=== PATIENT | male | born 2000 | race African-American/Black ===

== ENCOUNTER 2019-03-18 02:37 | Emergency (ER) | payer MEDICAID ==
[2019-03-18] MEDS ORDERED: NORMAL SALINE 1000 ML 1,000 ML IV ONE (03:58)
[2019-03-18] MEDS ORDERED: ONDANSETRON HCL INJ/PF 4 MG/2 ML SDV IV ONE (03:58)
[2019-03-18 04:22] LABS: ABSOLUTE BASOPHILS # (AUTO) 0.1 10^3/uL (0.0-0.2); ABSOLUTE MONOCYTES (AUTO) 0.4 10^3/uL (0.1-1.4); ABSOLUTE NEUT (AUTO) 6.5 10^3/uL (1.7-8.2); BASOPHILS % (AUTO) 0.6 % (0-2); EOSINOPHILS % (AUTO) 0.4 % (0-6); HEMATOCRIT 44.2 % (37.9-51.0); HEMOGLOBIN 14.6 g/dL (13.5-17.0); LYMPHOCYTES % (AUTO) 22.1 % (13-45); MEAN CORPUSCULAR HEMOGLOBIN 27.7 pg (27.0-33.4); MEAN CORPUSCULAR VOLUME 84 fl (80-97); MONOCYTES % (AUTO) 4.4 % (3-13); PLATELET COUNT 185 10^3/uL (150-450); RED BLOOD COUNT 5.26 10^6/uL (4.35-5.55); RED CELL DISTRIBUTION WIDTH 12.8 % (11.5-14.0); SEGMENTED NEUTROPHILS % (AUTO) 72.5 % (42-78); TOTAL CELLS COUNTED % (AUTO) 100 %; WHITE BLOOD COUNT 8.9 10^3/uL (4.0-10.5)
[2019-03-18 04:45] LABS: ALBUMIN 4.9 g/dL (3.7-5.6); ALKALINE PHOSPHATASE 73 U/L (65-260); ANION GAP 9 (5-19); ASPARTATE AMINO TRANSFERASE 25 U/L (10-45); BILIRUBIN,DIRECT 0.3 mg/dL (0.0-0.4); BILIRUBIN,TOTAL 0.8 mg/dL (0.2-1.3); BLOOD UREA NITROGEN 22 mg/dL (7-20); CALCIUM 9.9 mg/dL (8.4-10.2); CARBON DIOXIDE 29 mmol/L (22-30); CHLORIDE 102 mmol/L (98-107); GLUCOSE 164 mg/dL (75-110); POTASSIUM 4.1 mmol/L (3.6-5.0); TOTAL PROTEIN 8.1 g/dL (6.3-8.2)
[2019-03-18 05:52] LABS: AMORPHOUS SEDIMENT,URINE TRACE /HPF; APPEARANCE,URINE CLOUDY; BILIRUBIN,URINE NEGATIVE (NEGATIVE); COLOR,URINE YELLOW; GLUCOSE, URINE NEGATIVE (NEGATIVE); KETONES,URINE TRACE mg/dL (NEGATIVE); LEUKOCYTE ESTERASE,URINE NEGATIVE (NEGATIVE); NITRITE,URINE NEGATIVE (NEGATIVE); PROTEIN,URINE 30 mg/dL (NEGATIVE); URINE SPECIFIC GRAVITY 1.034
[2019-03-18 06:31] VITALS: BP 144/89
[2019-03-18] MEDS ORDERED: ONDANSETRON ODT 4 MG TAB (6 TAB/ER DISP) PO PRN (06:51)
--- NOTE | 2019-03-18 06:51 | ER Document Report ---
ED General - General Chief Complaint: Nausea/Vomiting/Diarrhea Stated Complaint: ABDOMINAL PAIN,VOMITING Time Seen by Provider: 03/18/19 04:00 Primary Care Provider: HENRY TORRES MD [Primary Care Provider] - Follow up as needed Notes: Patient is otherwise healthy 18-year-old male presents to the emergency department for nausea, vomiting, diarrhea proximally starting around 2000 hrs. this evening. States he ate at a different [place] restaurant that he typically eats out. States he ate a different meal that he typically eats and shortly after that developed nausea, vomiting, diarrhea. Patient states he is unsure of how many times he has had vomiting or diarrhea but is denying blood in either. Patient states he does have generalized abdominal pain. Patient's denying any medications, denies any medical problems, denies any allergies. TRAVEL OUTSIDE OF THE [place] IN LAST 30 DAYS: No - Related Data Allergies/Adverse Reactions: No Known Allergies Allergy (Unverified 06/23/13 19:10) Past Medical History - General Information source: Patient - Social History Smoking Status: Unknown if Ever Smoked Family History: Reviewed & Not Pertinent Patient has suicidal ideation: No Patient has homicidal ideation: No Pulmonary Medical History: Denies: Hx Asthma Musculoskeletal Medical History: Denies Hx Musculoskeletal Trauma Traumatic Medical History: Denies: Hx Fractures - Immunizations Immunizations up to date: Yes Hx Diphtheria, Pertussis, Tetanus Vaccination: Yes Review of Systems - Review of Systems Constitutional: denies: Fever EENT: No symptoms reported Cardiovascular: No symptoms reported Respiratory: No symptoms reported Gastrointestinal: See HPI Genitourinary: No symptoms reported Male Genitourinary: No symptoms reported Musculoskeletal: No symptoms reported Skin: No symptoms reported Hematologic/Lymphatic: No symptoms reported Neurological/Psychological: No symptoms reported Physical Exam - Vital signs Vitals: Temp Pulse Resp BP Pulse Ox 97.3 F 62 17 127/76 H 100 03/18/19 02:45 03/18/19 02:45 03/18/19 02:45 03/18/19 02:45 03/18/19 02:45 - Notes Notes: GENERAL: Alert, interacts well. No acute distress. HEAD: Normocephalic, atraumatic. EYES: Pupils equal, round, and reactive to light. Extraocular movements intact. ENT: Oral mucosa moist, tongue midline. NECK: Full range of motion. Supple. Trachea midline. LUNGS: Clear to auscultation bilaterally, no wheezes, rales, or rhonchi. No respiratory distress. HEART: Regular rate and rhythm. No murmur ABDOMEN: Soft, generalized periumbilical abdominal pain noted. Non-distended. Bowel sounds present in all 4 quadrants. No McBurney's point tenderness, no Santamaria sign noted. EXTREMITIES: Moves all 4 extremities spontaneously. No edema, normal radial and dorsalis pedis pulses bilaterally. No cyanosis. BACK: no cervical, thoracic, lumbar midline tenderness. No saddle anesthesia, normal distal neurovascular exam. NEUROLOGICAL: Alert and oriented x3. Normal speech. cranial nerves II through XII grossly intact PSYCH: Normal affect, normal mood. SKIN: Warm, dry, normal turgor. No rashes or lesions noted. Course - Re-evaluation Re-evalutation: 03/18/19 06:49 Laboratory 03/18/19 03/18/19 03/18/19 04:05 04:05 05:20 WBC 8.9 RBC 5.26 Hgb 14.6 Hct 44.2 MCV 84 MCH 27.7 MCHC 33.0 RDW 12.8 Plt Count 185 Lymph % (Auto) 22.1 [place] % (Auto) 4.4 Eos % (Auto) 0.4 Baso % (Auto) 0.6 Absolute Neuts (auto) 6.5 Absolute Lymphs (auto) 2.0 Absolute Monos (auto) 0.4 Absolute Eos (auto) 0.0 Absolute Basos (auto) 0.1 Seg Neutrophils % 72.5 Sodium 140.0 Potassium 4.1 Chloride 102 Carbon Dioxide 29 Anion Gap 9 BUN 22 H Creatinine 0.95 Est GFR ( Amer) > 60 Est GFR (MDRD) Non-Af > 60 Glucose 164 H Calcium 9.9 Total Bilirubin 0.8 Direct Bilirubin 0.3 Neonat Total Bilirubin Not Reportable Neonat Direct Bilirubin Not Reportable Neonat Indirect Bili Not Reportable AST 25 ALT 18 Alkaline Phosphatase 73 Total Protein 8.1 Albumin 4.9 Lipase 30.3 Urine Color YELLOW Urine Appearance CLOUDY Urine pH 6.0 Ur Specific [place] 1.034 Urine Protein 30 H Urine Glucose (UA) NEGATIVE Urine Ketones TRACE H Urine Blood NEGATIVE Urine Nitrite NEGATIVE Urine Bilirubin NEGATIVE Urine Urobilinogen 2.0 H Ur Leukocyte Esterase NEGATIVE Urine WBC (Auto) 2 Urine RBC (Auto) 1 Amorphous Sediment Auto TRACE Urine Mucus (Auto) MOD Urine Ascorbic Acid 40 H After treatments in the emergency department patient is sleeping upon my arrival to room for reexamination. Patient easily arousable to verbal stimuli. Patient states he overall feels a lot better. He has had no further episodes of vomiting or diarrhea. Patient denies any abdominal pain. Repeat abdominal exam reveals no tenderness in all 4 quadrants or periumbilical. Discussed use of Zofran and staying well-hydrated. At this time will discharge with return precautions and follow-up recommendations. Verbal discharge instructions given a the bedside and opp ortunity for questions given. Medication warnings reviewed. Patient is in agreement with this plan and has verbalized understanding of return precautions and the need for primary care follow-up in the next 24-72 hours. This medical record was dictated with voice recognizing software. There may be grammatical, syntax errors that are unintended. - Vital Signs Vital signs: Temp Pulse Resp BP Pulse Ox 98.2 F 61 12 144/89 H 98 03/18/19 06:29 03/18/19 06:29 03/18/19 06:29 03/18/19 06:29 03/18/19 06:29 - Laboratory Result Diagrams: 03/18/19 04:05 03/18/19 04:05 Laboratory results interpreted by me: 03/18/19 03/18/19 04:05 05:20 BUN 22 H Glucose 164 H Urine Protein 30 H Urine Ketones TRACE H Urine Urobilinogen 2.0 H Urine Ascorbic Acid 40 H Discharge - Discharge Clinical Impression: Nausea vomiting and diarrhea Condition: Stable Disposition: HOME, SELF-CARE Instructions: Antinausea Medication ([facility]), Diarrhea, Nonspecific ([facility]), Intravenous (IV) Fluids ([facility]), Vomiting ([facility]) Additional Instructions: As we discussed you have been seen and treated in the emergency department for nausea, vomiting, diarrhea. Please use nausea medication only as needed. Please also try to stay well-hydrated with water, Pedialyte, Gatorade. Please follow-up with your primary care provider in the next 24 to 48 hours. Please return to the emergency room for any further concerns. Forms: Return to Work Referrals: HENRY TORRES MD [Primary Care Provider] - Follow up as needed
== END 2019-03-18 07:02 | disposition home or self-care (01) ==
LOC: ER 02:37
DX: R11.2 Nausea with vomiting, unspecified (principal); R19.7 Diarrhea, unspecified; R10.9 Unspecified abdominal pain
CPT/HCPCS: 99284; 96361; 96374; 36415; 83690; 85025; 80053; 81001; J2405; J7030

== ENCOUNTER 2019-03-19 16:59 | Emergency (ER) | payer MEDICAID ==
[2019-03-19] MEDS ORDERED: FAMOTIDINE INJ/PF 20 MG/2 ML SDV IV ONE (17:53)
[2019-03-19] MEDS ORDERED: NORMAL SALINE 1000 ML 1,000 ML IV ONE (17:53)
[2019-03-19] MEDS ORDERED: METOCLOPRAMIDE HCL INJ/PF 10 MG/2 ML SDV IV ONE (17:53)
--- NOTE | 2019-03-19 17:56 | ER Document Report ---
ED Medical Screen (RME) - General Chief Complaint: Abdominal Pain Stated Complaint: ABDONMINAL PAIN Time Seen by Provider: 03/19/19 17:50 Primary Care Provider: HENRY TORRES MD [Primary Care Provider] - Follow up as needed Mode of Arrival: Ambulatory Information source: Patient Notes: Patient is an otherwise healthy 18-year-old male presenting to the emergency dep artment chief complaint of 3-day history of severe abdominal pain. Patient reports pain in the epigastric area, states he was seen here several days ago, diagnosed with food poisoning and placed on Zofran. Patient reports his symptoms have been getting worse since he left in the Zofran is not helping with his nausea. Patient denies any fevers. Patient does report he feels like he has to have a bowel movement but is unable to. Exam: Patient alert, oriented, answering all questions appropriately. Patient rocking back in chair and appears to be in mild distress. Tenderness to upper abdomen with palpation. I have greeted and performed a rapid initial assessment of this patient. A comprehensive ED assessment and evaluation of the patient, analysis of test results and completion of the medical decision making process will be conducted by additional ED providers. I have specifically instructed the patient or family members with the patient to immediately return to any nursing staff sh ould anything change in the patient's condition or with their chief complaint. This medical record was dictated with voice recognizing software. There may be grammatical, syntax errors that are unintended. TRAVEL OUTSIDE OF THE [place] IN LAST 30 DAYS: No - Related Data Allergies/Adverse Reactions: No Known Allergies Allergy (Verified 03/19/19 17:06) Past Medical History Pulmonary Medical History: Denies: Hx Asthma Musculoskeltal Medical History: Denies Hx Musculoskeletal Trauma Traumatic Medical History: Denies: Hx Fractures - Immunizations Immunizations up to date: Yes Hx Diphtheria, Pertussis, Tetanus Vaccination: Yes Physical Exam - Vital signs Vitals: Temp Pulse Resp BP Pulse Ox 98.0 F 73 18 133/69 H 99 03/19/19 17:08 03/19/19 17:08 03/19/19 17:08 03/19/19 17:08 03/19/19 17:08 Course - Vital Signs Vital signs: Temp Pulse Resp BP Pulse Ox 98.0 F 73 18 133/69 H 99 03/19/19 17:08 03/19/19 17:08 03/19/19 17:08 03/19/19 17:08 03/19/19 17:08 Doctor's Discharge - Discharge Referrals: HENRY TORRES MD [Primary Care Provider] - Follow up as needed
[2019-03-19 18:27] LABS: ABSOLUTE BASOPHILS # (AUTO) 0.1 10^3/uL (0.0-0.2); ABSOLUTE EOSINOPHILS # (AUTO) 0.2 10^3/uL (0.0-0.6); ABSOLUTE LYMPHOCYTES (AUTO) 4.3 10^3/uL (0.5-4.7); ABSOLUTE MONOCYTES (AUTO) 0.7 10^3/uL (0.1-1.4); ABSOLUTE NEUT (AUTO) 6.5 10^3/uL (1.7-8.2); EOSINOPHILS % (AUTO) 1.4 % (0-6); HEMATOCRIT 44.9 % (37.9-51.0); HEMOGLOBIN 14.8 g/dL (13.5-17.0); LYMPHOCYTES % (AUTO) 36.7 % (13-45); MEAN CORPUSCULAR HEMOGLOBIN 27.6 pg (27.0-33.4); MEAN CORPUSCULAR HGB CONC 32.9 g/dL (32.0-36.0); MEAN CORPUSCULAR VOLUME 84 fl (80-97); PLATELET COUNT 200 10^3/uL (150-450); RED BLOOD COUNT 5.36 10^6/uL (4.35-5.55); RED CELL DISTRIBUTION WIDTH 12.7 % (11.5-14.0); SEGMENTED NEUTROPHILS % (AUTO) 54.9 % (42-78); TOTAL CELLS COUNTED % (AUTO) 100 %; WHITE BLOOD COUNT 11.8 10^3/uL (4.0-10.5)
[2019-03-19 18:47] LABS: ALBUMIN 5.2 g/dL (3.7-5.6); ALKALINE PHOSPHATASE 63 U/L (65-260); ANION GAP 13 (5-19); ASPARTATE AMINO TRANSFERASE 25 U/L (10-45); BILIRUBIN,DIRECT 0.3 mg/dL (0.0-0.4); BILIRUBIN,TOTAL 0.7 mg/dL (0.2-1.3); BLOOD UREA NITROGEN 13 mg/dL (7-20); CALCIUM 10.4 mg/dL (8.4-10.2); CARBON DIOXIDE 29 mmol/L (22-30); CHLORIDE 98 mmol/L (98-107); GLUCOSE 116 mg/dL (75-110); TOTAL PROTEIN 8.2 g/dL (6.3-8.2)
--- NOTE | 2019-03-19 19:25 | ER Document Report ---
ED General - General Chief Complaint: Abdominal Pain Stated Complaint: ABDONMINAL PAIN Time Seen by Provider: 03/19/19 17:50 Primary Care Provider: HENRY TORRES MD [ACTIVE STAFF] - Follow up as needed Mode of Arrival: Ambulatory TRAVEL OUTSIDE OF THE [place] IN LAST 30 DAYS: No - HPI Notes: Patient is a 18-year-old male with no significant past medical history presents complaining of right lower abdominal pain, nausea, vomiting for the past 2 to 3 days. Patient states that the pain can get severe. Patient states that the pain does not radiate. He has had decreased p.o. intake due to his nausea and vomiting. Last bowel movement was here in the ED and was considered soft for him. He is still urinating normally. Denies drug allergies. No surgical history to his abdomen. Denies any headache, fever, URI, sore throat, chest pain, palpitations, syncope, cough, shortness of breath, wheeze, dyspnea, diarrhea, urinary retention, dysuria, hematuria, or rash. - Related Data Allergies/Adverse Reactions: No Known Allergies Allergy (Verified 03/19/19 17:06) Past Medical History - General Information source: Patient - Social History Smoking Status: Never Smoker Family History: Reviewed & Not Pertinent Patient has suicidal ideation: No Patient has homicidal ideation: No Pulmonary Medical History: Denies: Hx Asthma Musculoskeletal Medical History: Denies Hx Musculoskeletal Trauma Traumatic Medical History: Denies: Hx Fractures - Immunizations Immunizations up to date: Yes Hx Diphtheria, Pertussis, Tetanus Vaccination: Yes Review of Systems - Review of Systems -: Yes All other systems reviewed and negative Physical Exam - Vital signs Vitals: Temp Pulse Resp BP Pulse Ox 98.0 F 73 18 133/69 H 99 03/19/19 17:08 03/19/19 17:08 03/19/19 17:08 03/19/19 17:08 03/19/19 17:08 - Notes Notes: PHYSICAL EXAMINATION: GENERAL: Well-appearing, well-nourished and in no acute distress. HEAD: Atraumatic, normocephalic. EYES: Pupils equal round and reactive to light, extraocular movements intact, sclera anicteric, conjunctiva are normal. ENT: Nares patent and without discharge. oropharynx clear without exudates. No tonsilar hypertrophy or erythema. Moist mucous membranes. NECK: Normal range of motion, supple without lymphadenopathy LUNGS: Breath sounds clear to auscultation bilaterally and equal. No wheezes rales or rhonchi. HEART: Regular rate and rhythm without murmurs, rubs, gallops. ABDOMEN: Soft, nondistended abdomen. No guarding, no rebound. Normal bowel sounds present. No CVA tenderness bilaterally. + tenderness RLQ to palp. Santamaria neg. Musculoskeletal: FROM to passive/active. Strength 5+/5. Extremities: No cyanosis, clubbing, or edema b/l. Peripheral pulses 2+. Capillary refill less than 3 seconds. NEUROLOGICAL: Normal speech, normal gait. PSYCH: Normal mood, normal affect. SKIN: Warm, Dry, normal turgor, no rashes or lesions noted. Course - Re-evaluation Re-evalutation: 03/19/19 20:46 Patient is an afebrile, well-hydrated, 18-year-old male who presents with right lower abdominal pain, unspecified. Vitals are acceptable without significant tachycardia, tachypnea, or hypoxia. PE is otherwise unremarkable. Patient is nontoxic-appearing is tolerating p.o. without difficulty. Labs are unremarkable. CT scan and KUB unremarkable. No further work-up warranted at this time. Low suspicion/risk for acute appendicitis, bowel obstruction, acute cholecystitis, perforated diverticulitis, incarcerated hernia, pancreatitis, perforated ulcer, peritonitis, sepsis, testicular torsion, or other systemic emergent condition at this time. Patient is aware that his condition can change from initial presentation and he needs to monitor symptoms closely and seek medical attention if any acute changes. Conservative measures otherwise for symptoms. Recheck with PCM in 2-3 days. Consider consult with a poultry hatchery man. Return to the ED with any worsening/concerning symptoms otherwise as reviewed in discharge. Patient is in agreement. - Vital Signs Vital signs: Temp Pulse Resp BP Pulse Ox 98.0 F 73 18 133/69 H 99 03/19/19 17:08 03/19/19 17:08 03/19/19 17:08 03/19/19 17:08 03/19/19 17:08 - Laboratory Result Diagrams: 03/19/19 18:10 03/19/19 18:10 Laboratory results interpreted by me: 03/19/19 03/19/19 18:10 18:10 WBC 11.8 H Glucose 116 H Calcium 10.4 H Alkaline Phosphatase 63 L Discharge - Discharge Clinical Impression: Lower abdominal pain, unspecified Nausea & vomiting Qualifiers: Vomiting type: unspecified Vomiting Intractability: non-intractable Qualified Code(s): R11.2 - Nausea with vomiting, unspecified Condition: Stable Disposition: HOME, SELF-CARE Instructions: Abdominal Pain ([facility]), Observation for Appendicitis ([facility]) Additional Instructions: Maintain adequate fluid and food intake [place] diet ([employer] Bananas, rice, apples, toast, etc tylenol if needed Monitor for any worsening symptoms Make sure you are staying hydrated enough to urinate and have normal BM's Recheck with your PCM in 2-3 days Consider consult with Gastroenterology for ongoing/worsening symptoms Return to the ED with any worsening symptoms and/or development of fever, headache, chest pain, palpitations, syncope, shortness of breath, trouble breathing, abdominal pain, n/v/d, blood in stool/urine, weakness, or other wo rsening symptoms that are concerning to you. Prescriptions: Promethazine HCl [Phenergan 25 mg Supp.rect] 1 supp OR TID PRN #10 supp.rect PRN Reason: Ondansetron [Zofran Odt 4 mg Tablet] 1 - 2 tab PO Q4H PRN #15 tab.rapdis PRN Reason: For Nausea/Vomiting Forms: Elevated Blood Pressure, Return to Work Referrals: HENRY TORRES MD [ACTIVE STAFF] - Follow up as needed VANESSA FENTON MD [ACTIVE STAFF] - Follow up as needed
--- NOTE | 2019-03-19 19:40 | RADIOLOGY REPORT (SQ) ---
EXAM DESCRIPTION: KUB/ABDOMEN (SINGLE VIEW) COMPLETED DATE/TIME: 03/19/2019 7:17 pm REASON FOR STUDY: abd pain, vomiting COMPARISON: None. NUMBER OF VIEWS: One view. TECHNIQUE: Supine radiographic image of the abdomen acquired. LIMITATIONS: None. FINDINGS: BOWEL GAS PATTERN: Normal bowel gas pattern. No dilated loops. CALCIFICATIONS: No suspicious calcifications. SOFT TISSUES: No gross mass or suggestion of organomegaly. HARDWARE: None in the abdomen. BONES: No acute fracture. No worrisome bone lesions. OTHER: No other significant finding. IMPRESSION: NO RADIOGRAPHIC EVIDENCE FOR ACUTE ABDOMINAL DISEASE. TECHNICAL DOCUMENTATION: JOB ID: [id number] [place]-72 2010 [employer]- All Rights Reserved Reading location - IP/workstation name: [email or web address]
--- NOTE | 2019-03-19 20:37 | RADIOLOGY REPORT (SQ) ---
EXAM DESCRIPTION: CT ABDOMEN PELVIS WITH IV CONTRAST COMPLETED DATE/TME: 03/19/2019 19:23 CLINICAL HISTORY: 18 years, Male, RLQ abd pain COMPARISON: None. TECHNIQUE: Contrast enhanced CT of the abdomen/pelvis was performed. Coronal and sagittal reformations were created. Images stored on PACS. All CT scanners at this facility use dose modulation, iterative reconstruction, and/or weight based dosing when appropriate to reduce radiation dose to as low as reasonably achievable (ALARA). [facility]: Dose Right [facility]: CareDose [facility]: Dose Right [facility]: Teradose 4D [facility]: [employer] LIMITATIONS: None. FINDINGS: Limited evaluation of the lower chest reveals clear lung bases. The liver, spleen, pancreas, gallbladder, and both adrenal glands appear normal. Both kidneys enhance symmetrically. No hydronephrosis or hydroureter. Urinary bladder is well distended and shows no suspicious finding. Small and large bowel appear normal in caliber. Areas of focal wall thickening. No evidence of bowel obstruction. Appendix is normal. Vascular structures appear normal. No lymphadenopathy or drainable fluid collections. Bone windows show no destructive osseous lesions. IMPRESSION: No acute abnormality within the abdomen or pelvis. TECHNICAL DOCUMENTATION: Quality ID # [id number]: Final reports with documentation of one or more dose reduction techniques (e.g., Automated exposure control, adjustment of the mA and/or kV according to patient size, use of iterative reconstruction technique) copyright 2011 [employer]- All Rights Reserved
[2019-03-19] MEDS ORDERED: KETOROLAC TROMETHAMINE INJ/PF 30 MG/1 ML SDV IV ONE (21:01)
[2019-03-19 21:18] VITALS: BP 136/86
== END 2019-03-19 21:16 | disposition home or self-care (01) ==
LOC: ER 16:59
DX: R10.31 Right lower quadrant pain (principal); R11.2 Nausea with vomiting, unspecified
CPT/HCPCS: 99284; 96361; 96374; 96375; 36415; 83690; 85025; 80053; 74018; 74177; J1885; J2765; J7030; S0028

== ENCOUNTER 2019-03-21 10:33 | Emergency (ER) | payer MEDICAID ==
[2019-03-21] MEDS ORDERED: METOCLOPRAMIDE HCL ORAL SOLN 10 MG/10 ML UDCUP PO ONE (11:11)
[2019-03-21] MEDS ORDERED: MAG HYDROX/AL HYDROX/SIMETH SUSP 30 ML UDCUP PO ONE (11:11)
[2019-03-21] MEDS ORDERED: LIDOCAINE 2% VISCOUS SOLN 20 ML UDCUP PO ONE (11:11)
--- NOTE | 2019-03-21 11:14 | ER Document Report ---
ED Medical Screen (RME) - General TRAVEL OUTSIDE OF THE [place] IN LAST 30 DAYS: No <SHERIN TENA - Last Filed: 03/21/19 11:12> <KITA ARIAS - Last Filed: 03/21/19 14:00> - General Chief Complaint: Abdominal Pain Stated Complaint: ABDOMINAL PAIN Time Seen by Provider: 03/21/19 11:05 Notes: Patient is a 18-year-old male presents to the emergency department with a chief complaint of abdominal pain. Patient states he was seen here a few days ago for the same and had a CAT scan which was unremarkable. Patient states yesterday he felt fine but then woke up this morning with a constant cramping to his abdomen. Patient states he is unable to pinpoint a specific location in his abdomen as he hurts all over. Patient reports nausea and vomiting twice this morning. Patient reports an episode of liquid stool. Patient denies blood in the vomitus or stool. Patient does report a history of acid reflux in which she was prescribed medication when he was younger but has not been on anything recently. Patient reports his abdominal pain is been present for 4 to 5 days. Patient states he has had a decreased appetite. (SHERIN TENA) - Related Data Pertinent History: Patient resents emergency department for evaluation of abdominal pain, nausea, vomiting, diarrhea. Initially stated he had not had diarrhea, but he states all of his stools have been liquid. He has had 2 episodes of nonbloody, nonbilious emesis. He has upper abdominal pain medic and not describe beyond saying "it hurts." Nothing seems to make it better or worse. He is still urinating. No tara fevers to his knowledge. (KITA ARIAS) Allergies/Adverse Reactions: No Known Allergies Allergy (Verified 03/21/19 10:34) Past Medical History - Social History Chew tobacco use (# tins/day): No Frequency of alcohol use: None Drug Abuse: None Pulmonary Medical History: Denies: Hx Asthma Musculoskeltal Medical History: Denies Hx Musculoskeletal Trauma Traumatic Medical History: Denies: Hx Fractures - Immunizations Immunizations up to date: Yes Hx Diphtheria, Pertussis, Tetanus Vaccination: Yes <SHERIN TENA - Last Filed: 03/21/19 11:12> - General Information source: Patient <KITA ARIAS - Last Filed: 03/21/19 14:00> Physical Exam - Abdominal Inspection: Normal Distension: No distension Bowel sounds: Normal Tenderness: Nontender Organomegaly: No organomegaly <SHERIN TENA - Last Filed: 03/21/19 11:12> - Vital signs Vitals: Temp Pulse Resp BP Pulse Ox 98.3 F 59 L 16 146/97 H 100 03/21/19 10:36 03/21/19 10:36 03/21/19 10:36 03/21/19 10:36 03/21/19 10:36 Course <SHERIN TENA - Last Filed: 03/21/19 11:12> - Laboratory Result Diagrams: 03/21/19 11:29 03/21/19 11:29 <KITA ARIAS - Last Filed: 03/21/19 14:00> - Re-evaluation Re-evalutation: 03/21/19 11:13 We will initiate basic labs and give a GI cocktail due to the patient's report of abdominal pain and history of acid reflux. (SHERIN TENA) - Vital Signs Vital signs: Temp Pulse Resp BP Pulse Ox 98.3 F 59 L 16 146/97 H 100 03/21/19 10:36 03/21/19 10:36 03/21/19 10:36 03/21/19 10:36 03/21/19 10:36 - Laboratory Laboratory results interpreted by me: 03/21/19 11:29 Carbon Dioxide 31 H Calcium 10.4 H Alkaline Phosphatase 62 L
[2019-03-21 11:55] LABS: APPEARANCE,URINE CLEAR; BILIRUBIN,URINE NEGATIVE (NEGATIVE); COLOR,URINE YELLOW; GLUCOSE, URINE NEGATIVE (NEGATIVE); KETONES,URINE NEGATIVE (NEGATIVE); LEUKOCYTE ESTERASE,URINE NEGATIVE (NEGATIVE); NITRITE,URINE NEGATIVE (NEGATIVE); PROTEIN,URINE NEGATIVE (NEGATIVE); URINE SPECIFIC GRAVITY 1.014; UROBILINOGEN,URINE NEGATIVE mg/dL (<2.0)
[2019-03-21 11:57] LABS: ABSOLUTE BASOPHILS # (AUTO) 0.1 10^3/uL (0.0-0.2); ABSOLUTE EOSINOPHILS # (AUTO) 0.1 10^3/uL (0.0-0.6); ABSOLUTE LYMPHOCYTES (AUTO) 2.3 10^3/uL (0.5-4.7); ABSOLUTE MONOCYTES (AUTO) 0.4 10^3/uL (0.1-1.4); ABSOLUTE NEUT (AUTO) 5.3 10^3/uL (1.7-8.2); BASOPHILS % (AUTO) 0.9 % (0-2); EOSINOPHILS % (AUTO) 1.1 % (0-6); HEMATOCRIT 44.4 % (37.9-51.0); HEMOGLOBIN 14.8 g/dL (13.5-17.0); LYMPHOCYTES % (AUTO) 28.4 % (13-45); MEAN CORPUSCULAR HGB CONC 33.4 g/dL (32.0-36.0); MEAN CORPUSCULAR VOLUME 84 fl (80-97); MONOCYTES % (AUTO) 5.4 % (3-13); PLATELET COUNT 196 10^3/uL (150-450); SEGMENTED NEUTROPHILS % (AUTO) 64.2 % (42-78); TOTAL CELLS COUNTED % (AUTO) 100 %; WHITE BLOOD COUNT 8.3 10^3/uL (4.0-10.5)
[2019-03-21 12:02] LABS: ALKALINE PHOSPHATASE 62 U/L (65-260); ANION GAP 10 (5-19); ASPARTATE AMINO TRANSFERASE 19 U/L (10-45); BILIRUBIN,DIRECT 0.1 mg/dL (0.0-0.4); BILIRUBIN,TOTAL 0.8 mg/dL (0.2-1.3); BLOOD UREA NITROGEN 10 mg/dL (7-20); CALCIUM 10.4 mg/dL (8.4-10.2); CARBON DIOXIDE 31 mmol/L (22-30); CHLORIDE 99 mmol/L (98-107); GLUCOSE 98 mg/dL (75-110); POTASSIUM 3.8 mmol/L (3.6-5.0); TOTAL PROTEIN 7.7 g/dL (6.3-8.2)
[2019-03-21] MEDS ORDERED: DICYCLOMINE HCL 20 MG TABLET PO ONE (13:44)
--- NOTE | 2019-03-21 14:27 | ER Document Report ---
ED General - General Chief Complaint: Abdominal Pain Stated Complaint: ABDOMINAL PAIN Time Seen by Provider: 03/21/19 11:05 TRAVEL OUTSIDE OF THE [place] IN LAST 30 DAYS: No - HPI Notes: Patient is a 18-year-old male who presents to the emergency department for evaluation. This is actually his third visit for similar. He states his been having abdominal pain that he cannot describe for me beyond that "it hurts." He states that he has had 2 episodes of nonbloody, nonbilious emesis in the last 24 hours. He initially denied diarrhea, then admitted to multiple watery stools today. He has some chills. Still urinating. - Related Data Allergies/Adverse Reactions: No Known Allergies Allergy (Verified 03/21/19 10:34) Past Medical History - General Information source: Patient - Social History Smoking Status: Never Smoker Chew tobacco use (# tins/day): No Frequency of alcohol use: None Drug Abuse: None Family History: Reviewed & Not Pertinent Patient has suicidal ideation: No Patient has homicidal ideation: No Pulmonary Medical History: Denies: Hx Asthma Musculoskeletal Medical History: Denies Hx Musculoskeletal Trauma Traumatic Medical History: Denies: Hx Fractures - Immunizations Immunizations up to date: Yes Hx Diphtheria, Pertussis, Tetanus Vaccination: Yes Review of Systems - Review of Systems Constitutional: See HPI EENT: No symptoms reported Cardiovascular: No symptoms reported Respiratory: No symptoms reported Gastrointestinal: See HPI Genitourinary: No symptoms reported Musculoskeletal: No symptoms reported Skin: No symptoms reported Neurological/Psychological: No symptoms reported Physical Exam - Vital signs Vitals: Temp Pulse Resp BP Pulse Ox 98.3 F 59 L 16 146/97 H 100 03/21/19 10:36 03/21/19 10:36 03/21/19 10:36 03/21/19 10:36 03/21/19 10:36 - Notes Notes: Vital signs reviewed, please refer to chart. Head is normocephalic, atraumatic. Pupils equal round, reactive to light. Neck is supple without meningismus. Heart is regular rate and rhythm. Lungs are clear to auscultation bilaterally. Abdomen is soft, nontender, normoactive bowel sounds throughout. Extremities without cyanosis, clubbing. Posterior calves are nontender. Peripheral pulses are equal. Skin is warm and dry. Patient is awake, alert, neurological exam is nonfocal. Course - Re-evaluation Re-evalutation: 03/21/19 14:25 Patient presents emergency department for evaluation of abdominal pain. He had initially denied diarrhea, but admitted to it once I explained the definition to him. He likely has a viral gastroenteritis. His pain is diffuse in his upper abdomen, and his abdominal exam is in fact nontender. At this point I do not see any reason for further imaging. He is [place] had a CT scan. His labs revealed no significant abnormalities. We will send him home with Andrew and close follow-up. He is to return to the ED with worsening. - Vital Signs Vital signs: Temp Pulse Resp BP Pulse Ox 98.3 F 59 L 16 146/97 H 100 03/21/19 10:36 03/21/19 10:36 03/21/19 10:36 03/21/19 10:36 03/21/19 10:36 - Laboratory Result Diagrams: 03/21/19 11:29 03/21/19 11:29 Laboratory results interpreted by me: 03/21/19 11:29 Carbon Dioxide 31 H Calcium 10.4 H Alkaline Phosphatase 62 L Discharge - Discharge Clinical Impression: Nausea vomiting and diarrhea, Upper abdominal pain Condition: Stable Disposition: HOME, SELF-CARE Instructions: Abdominal Pain ([facility]), Antispasmodics ([facility]), Vomiting ([facility]), Diarrhea, Nonspecific ([facility])
[2019-03-21 15:03] VITALS: BP 134/85
== END 2019-03-21 15:03 | disposition home or self-care (01) ==
LOC: ER 10:33
DX: R10.10 Upper abdominal pain, unspecified (principal); R11.2 Nausea with vomiting, unspecified; R19.7 Diarrhea, unspecified; R68.83 Chills (without fever)
CPT/HCPCS: 99284; 36415; 83690; 85025; 80053; 81001; J3490 ×4